=== PATIENT | male | born 1960 | race Hispanic/Latino ===

== ENCOUNTER → 2017-11-30 | Outpatient (CLI) | payer BC | END | disposition home or self-care (01) | LOC: RAH 13:44 | PROVIDERS: ATTEND Internal Medicine | DX: R51 Headache (principal); M54.2 Cervicalgia | CPT/HCPCS: 70450; 70490 ==

== ENCOUNTER 2018-03-07 05:53 | Observation (INO) | payer BC ==
[2018-03-05 08:45] VITALS: BP 145/74
[2018-03-05 08:52] LABS: BASOPHILS % (AUTO) 1.4 % (0.0-5.0); EOSINOPHILS % (AUTO) 3.7 % (0.0-8.0); HEMATOCRIT 46.9 % (42-54); LYMPHOCYTES % (AUTO) 23.7 % (21.0-51.0); MEAN CORPUSCULAR HEMOGLOBIN 30.6 pg (27.0-33.0); MEAN CORPUSCULAR HGB CONC 34.4 g/dL (32.0-36.0); MONOCYTES % (AUTO) 11.2 % (3.0-13.0); PLATELET COUNT (AUTO) 149 K/uL (130-400); RED BLOOD CELL COUNT(AUTO) 5.27 MIL/uL (4.50-6.20); RED CELL DISTRIBUTION WIDTH 13.3 % (11.0-15.5)
[2018-03-05 08:54] LABS: APPEARANCE,URINE Clear (CLEAR); BILIRUBIN,URINE Negative (NEGATIVE); COLOR,URINE Yellow (YELLOW); GLUCOSE, URINE (UA) Negative (NEGATIVE); KETONES,URINE Negative (NEGATIVE); LEUKOCYTE ESTERASE ,URINE Negative (NEGATIVE); NITRATE,URINE Negative (NEGATIVE); OCCULT BLOOD,URINE Negative (NEGATIVE); PROTEIN,URINE Negative (NEGATIVE)
[2018-03-05 09:00] LABS: CREATININE 1.2 mg/dL (0.5-1.5)
[2018-03-05 09:13] LABS: INR 1.1 (0.85-1.15); PARTIAL THROMBOPLASTIN TIME 33.9 SEC (26.3-35.5); PROTHROMBIN TIME 11.5 SEC (9.6-11.6)
[~2018-03-07] VITALS: Ht 172.7 cm; Wt 96.1 kg
[2018-03-07] VITALS (11 sets, daily range): BP systolic 133–155; BP diastolic 76–93
[~2018-03-07 05:53] MED LIST: ASPI-555 PO; ATOR20TA65 PO; ISOS30TA6 PO; LOSA50TA25 PO; METO-391 PO; NITR0.4T50 SL; SODIUM CHLORIDE 0.9% 1000ML 1,000 ML IV SCH
[2018-03-07] MEDS ORDERED: LIDOCAINE HCL-MPF 2% 5ML VIAL ONE (09:35)
[2018-03-07] MEDS ORDERED: IOHEXOL 350 MG/ML 100ML INFUS..BTL IV ONE ×2 (09:36→09:57)
[2018-03-07] MEDS ORDERED: NITROGLYCERIN 5 MG/ML 10 ML VIAL IV ONE (09:36)
[2018-03-07] MEDS ORDERED: IOHEXOL-350 50ML VIAL IV ONE (09:36)
[2018-03-07] MEDS ORDERED: IOHEXOL-350 75 ML VIAL IV ONE (09:36)
[2018-03-07] MEDS ORDERED: MIDAZOLAM HCL 1 MG/ML 2ML VIAL ONE (09:54)
[2018-03-07] MEDS ORDERED: BIVALIRUDIN 250 MG/VIAL IV ONE (10:23)
[2018-03-07] MEDS ORDERED: ADENOSINE 90MG/30ML VIAL IV ONE (10:29)
[2018-03-07] MEDS ORDERED: PRASUGREL HCL 10 MG TABLET ONE (10:39)
[2018-03-07] MEDS ORDERED: ASPIRIN 325MG EC TAB 325 MG TABLET.DR PO ONE (10:40)
[2018-03-07] MEDS ORDERED: ONDANSETRON HCL 4 MG/2 ML VIAL IVP PRN (12:15)
[2018-03-07] MEDS ORDERED: ACETAMINOPHEN-CODEINE 300/30MG TAB PO PRN ×2 (12:15)
[2018-03-07] MEDS ORDERED: NITROGLYCERIN 0.4 MG SL TAB SL SCH (12:15)
[2018-03-07] MEDS ORDERED: PRASUGREL HCL 10 MG TABLET PO SCH (12:15)
[2018-03-07] MEDS: SODIUM CHLORIDE 0.9% 1000ML 1,000 ML IV SCH ×2 (13:29→23:51)
[2018-03-07] MEDS ORDERED: ATORVASTATIN CALCIUM 20 MG TABLET PO SCH (21:00)
[2018-03-07] MEDS: METOPROLOL TARTRATE 25 MG TAB PO SCH (21:45)
[2018-03-08 04:01] LABS: HEMATOCRIT 47.8 % (42-54); MEAN CORPUSCULAR HEMOGLOBIN 29.5 pg (27.0-33.0); MEAN CORPUSCULAR HGB CONC 33.2 g/dL (32.0-36.0); MEAN CORPUSCULAR VOLUME 88.9 fL (79-99); PLATELET COUNT (AUTO) 130 K/uL (130-400); RED BLOOD CELL COUNT(AUTO) 5.37 MIL/uL (4.50-6.20); RED CELL DISTRIBUTION WIDTH 13.8 % (11.0-15.5)
[2018-03-08 04:18] LABS: CREATININE 1.2 mg/dL (0.5-1.5)
[2018-03-08 04:46] VITALS: BP 140/86
[2018-03-08 07:56] VITALS: BP 145/87
[2018-03-08] MEDS: METOPROLOL TARTRATE 25 MG TAB PO SCH (08:46)
[2018-03-08] MEDS ORDERED: PRAS10TA9 PO (08:57)
[2018-03-08] MEDS ORDERED: PRASUGREL HCL 10 MG TABLET PO SCH (09:00)
[2018-03-08] MEDS ORDERED: ASPIRIN 81MG TAB.CHEW PO SCH (09:00)
[2018-03-08] MEDS ORDERED: LOSARTAN 50 MG TABLET PO SCH (09:00)
[2018-03-08] MEDS ORDERED: ISOSORBIDE MONO 30MG TAB SR PO SCH (09:00)
== END 2018-03-08 10:00 | disposition home or self-care (01) ==
LOC: DAH 05:53 → 2AH 05:54
PROVIDERS: ADMIT Internal Medicine Cardiovascular Disease; ATTEND Internal Medicine Cardiovascular Disease
DX: I25.119 Atherosclerotic heart disease of native coronary artery with unspecified angina pectoris (principal); I25.799 Atherosclerosis of other coronary artery bypass graft(s) with unspecified angina pectoris; I25.5 Ischemic cardiomyopathy; E78.5 Hyperlipidemia, unspecified; I10 Essential (primary) hypertension; I25.2 Old myocardial infarction; Z79.899 Other long term (current) drug therapy; Z79.01 Long term (current) use of anticoagulants
CPT/HCPCS: 33521; 33533; 36415 ×2; 71045; 80048 ×2; 80061; 81003; 85025; 85027; 85610; 85730; 93005 ×3; 93571; 93572; A4606; C1725; C1760; C1769; C1874 ×3; C1887 ×2; C1894 ×2; C9600 ×2; G0378 ×28; J0153; J0583; J1644 ×2; J2250; J3490 ×2; J7030 ×3; Q9965 ×2; Q9967 ×4; 99156; 99157; C9601

== ENCOUNTER 2020-03-31 08:05 | Day surgery (SDC) | payer BC ==
[2020-03-27 11:50] VITALS: BP 140/69
[2020-03-27 15:09] LABS: BASOPHILS % (AUTO) 0.9 % (0.0-5.0); EOSINOPHILS % (AUTO) 4.4 % (0.0-8.0); HEMATOCRIT 42.1 % (42-54); MEAN CORPUSCULAR VOLUME 91.3 fL (79-99); MONOCYTES % (AUTO) 11.7 % (3.0-13.0); NEUTROPHILS % (AUTO) 58.3 % (40.0-77.0); PLATELET COUNT (AUTO) 146 K/uL (130-400); RED BLOOD CELL COUNT(AUTO) 4.61 MIL/uL (4.50-6.20); RED CELL DISTRIBUTION WIDTH 12.7 % (11.0-15.5); WHITE BLOOD COUNT (AUTO) 6.8 K/uL (4.8-10.8)
[2020-03-27 15:10] LABS: APPEARANCE,URINE Clear (CLEAR); BILIRUBIN,URINE Negative (NEGATIVE); COLOR,URINE Yellow (YELLOW); GLUCOSE, URINE (UA) Negative (NEGATIVE); KETONES,URINE Negative (NEGATIVE); LEUKOCYTE ESTERASE ,URINE Negative (NEGATIVE); NITRATE,URINE Negative (NEGATIVE); OCCULT BLOOD,URINE Negative (NEGATIVE); PROTEIN,URINE Negative (NEGATIVE)
[2020-03-27 15:17] LABS: CREATININE 1.5 mg/dL (0.5-1.5)
[2020-03-27 15:18] LABS: INR 1.06 (0.85-1.15); PARTIAL THROMBOPLASTIN TIME 29.8 SEC (26.3-35.5); PROTHROMBIN TIME 11.4 SEC (9.6-11.6)
[2020-03-31] VITALS (9 sets, daily range): BP systolic 14–140; BP diastolic 63–78
[~2020-03-31] VITALS: Ht 160 cm; Wt 92.9 kg
[~2020-03-31 08:05] MED LIST changes: -ASPI-555 PO; +ASPI-556 PO; -ATOR20TA65 PO; +ATOR40TA71 PO; +CLOP75TA14 PO; -ISOS30TA6 PO; +LOSA100T58 PO; -LOSA50TA25 PO; +RANO10005 PO; -SODIUM CHLORIDE 0.9% 1000ML 1,000 ML IV SCH
[2020-03-31] MEDS ORDERED: SODIUM CHLORIDE 0.9% 1000ML 1,000 ML IV ONE (08:11)
[2020-03-31] MEDS ORDERED: SODIUM CHLORIDE 0.9% 500ML 500 ML IV SCH (08:15)
[2020-03-31] MEDS ORDERED: BIVALIRUDIN 250 MG/VIAL IV ONE (09:42)
[2020-03-31] MEDS ORDERED: IOHEXOL-350 75 ML VIAL IV ONE (09:42)
[2020-03-31] MEDS ORDERED: NITROGLYCERIN 2 MG/VIAL VIAL IV ONE (09:42)
[2020-03-31] MEDS ORDERED: MIDAZOLAM HCL 1 MG/ML 2ML VIAL ONE (09:43)
[2020-03-31] MEDS ORDERED: LIDOCAINE HCL 2% 20ML ONE (09:43)
[2020-03-31] MEDS ORDERED: ASPIRIN 325MG EC TAB 325 MG TABLET.DR PO ONE (12:06)
[2020-03-31] MEDS ORDERED: PRASUGREL HCL 10 MG TABLET ONE (12:06)
[2020-03-31] MEDS ORDERED: LABETALOL HCL 5 MG/ML 20ML VIAL IV ONE (13:04)
[2020-03-31] MEDS ORDERED: NITROGLYCERIN 4.1 GM SPRAY TL ONE (13:34)
[2020-03-31] MEDS ORDERED: SODIUM CHLORIDE 0.9% 1000ML 1,000 ML IV SCH (13:45)
[2020-03-31 15:24] LABS: CHOLESTEROL 121 mg/dL (<200); HDL CHOLESTEROL 45 mg/dL (29-71); LDL DIRECT 70 mg/dL (0-99); TRIGLYCERIDES 125 mg/dL (30-200)
== END 2020-03-31 18:10 | disposition home or self-care (01) ==
LOC: DAH 08:05
PROVIDERS: ATTEND Internal Medicine Cardiovascular Disease
DX: I25.119 Atherosclerotic heart disease of native coronary artery with unspecified angina pectoris (principal); I25.719 Atherosclerosis of autologous vein coronary artery bypass graft(s) with unspecified angina pectoris; I25.82 Chronic total occlusion of coronary artery; I25.2 Old myocardial infarction; E78.5 Hyperlipidemia, unspecified; I45.10 Unspecified right bundle-branch block; I25.5 Ischemic cardiomyopathy; Z79.01 Long term (current) use of anticoagulants; Z79.82 Long term (current) use of aspirin; Z79.899 Other long term (current) drug therapy; Z98.890 Other specified postprocedural states; Z95.1 Presence of aortocoronary bypass graft; Z95.5 Presence of coronary angioplasty implant and graft
CPT/HCPCS: 36415 ×2; 71045; 80048; 80061; 81003; 85025; 85610; 85730; 92920; 93005; 93459; A4215; A4216; A4221; A4222; A4223 ×3; A4606; A4663; C1725; C1760; C1769; C1874 ×2; C1887 ×2; C1894 ×2; C9600; C9604; J0583; J1644 ×2; J2250; J3490 ×3; J7030 ×2; Q9967; 96360; 96361; 99156; 99157

== ENCOUNTER 2020-09-22 06:53 | Day surgery (SDC) | payer BC ==
[2020-09-22] VITALS (7 sets, daily range): BP systolic 101–138; BP diastolic 53–86
[~2020-09-22] VITALS: Ht 160 cm; Wt 90.7 kg
[~2020-09-22 06:53] MED LIST changes: +0.9%NACL 1000ML 1,000 ML IV ONE; -CLOP75TA14 PO
[2020-09-22] MEDS ORDERED: PRAS10TA9 PO (08:05)
[2020-09-22] MEDS ORDERED: LIDOCAINE HCL 1% 20 ML VIAL ONE (09:06)
[2020-09-22] MEDS ORDERED: PROPOFOL 10 MG/ML 20ML VIAL IV ONE (09:06)
[2020-09-23] MEDS ORDERED: PROPOFOL 10 MG/ML 20ML VIAL IV ONE (07:42)
== END 2020-09-22 10:05 | disposition home or self-care (01) ==
LOC: ENDO 06:53 → DAH 06:53 → ENDO 10:05
PROVIDERS: ATTEND Internal Medicine
DX: R19.5 Other fecal abnormalities (principal); I25.10 Atherosclerotic heart disease of native coronary artery without angina pectoris; I10 Essential (primary) hypertension; I25.2 Old myocardial infarction; Z95.1 Presence of aortocoronary bypass graft; E78.5 Hyperlipidemia, unspecified; Z79.82 Long term (current) use of aspirin; Z79.899 Other long term (current) drug therapy
CPT/HCPCS: 45378; 87426; 93005; A4215; A4221; A4222; A4223; A4606; A4620; J2704; J7030

== ENCOUNTER 2020-09-23 05:57 | Day surgery (SDC) | payer BC ==
[~2020-09-23] VITALS: Ht 160 cm; Wt 90.7 kg
[2020-09-23] VITALS (8 sets, daily range): BP systolic 117–136; BP diastolic 68–87
[~2020-09-23 05:57] MED LIST changes: -0.9%NACL 1000ML 1,000 ML IV ONE; +PRAS10TA9 PO
[2020-09-23] MEDS ORDERED: SODIUM CHLORIDE 0.9% 1000ML 1,000 ML IV ONE (07:12)
== END 2020-09-23 08:55 | disposition home or self-care (01) ==
LOC: ENDO 05:57 → DAH 05:57 → ENDO 08:55
PROVIDERS: ATTEND Internal Medicine
DX: K92.1 Melena (principal); K64.0 First degree hemorrhoids; K64.4 Residual hemorrhoidal skin tags; I10 Essential (primary) hypertension; I25.2 Old myocardial infarction; I25.10 Atherosclerotic heart disease of native coronary artery without angina pectoris; E78.5 Hyperlipidemia, unspecified; Z79.82 Long term (current) use of aspirin; Z79.899 Other long term (current) drug therapy; Z98.890 Other specified postprocedural states; Z95.5 Presence of coronary angioplasty implant and graft
CPT/HCPCS: 45378; A4215 ×2; A4221; A4222; A4223; A4606; A4620; A4657; A4663; J7030

== ENCOUNTER → 2022-12-02 | Outpatient (CLI) | payer BC ==
[~2022-12-02] MED LIST changes: -LOSA100T58 PO; +LOSA100T59 PO
[2022-12-02 12:16] LABS: ALBUMIN 4.2 g/dL (3.5-5.0); CREATININE 1.2 mg/dL (0.5-1.5); POTASSIUM 4.1 mmol/L (3.5-5.1); TOTAL PROTEIN, SERUM 7.8 g/dL (6.0-8.3)
== END | disposition home or self-care (01) ==
LOC: LAB 09:57
PROVIDERS: ATTEND Internal Medicine Cardiovascular Disease
DX: I25.119 Atherosclerotic heart disease of native coronary artery with unspecified angina pectoris (principal); E78.5 Hyperlipidemia, unspecified
CPT/HCPCS: 36415; 80053; 80061

== ENCOUNTER 2023-09-15 08:11 | Day surgery (SDC) | payer BC ==
[2023-09-13 13:04] LABS: BASOPHILS # (AUTO) 0.07 K/uL (0.00-0.20); BASOPHILS % (AUTO) 0.9 % (0.0-5.0); EOSINOPHILS # (AUTO) 0.35 K/uL (0.00-0.70); EOSINOPHILS % (AUTO) 4.7 % (0.0-8.0); HEMATOCRIT 44.8 % (42-54); IMMATURE GRANULOCYTE ABSOLUTE 0.06 K/uL (0-1); LYMPHOCYTES % (AUTO) 26.9 % (21.0-51.0); MEAN CORPUSCULAR HEMOGLOBIN 31.5 pg (27.0-33.0); MEAN CORPUSCULAR HGB CONC 34.4 g/dL (32.0-36.0); MEAN CORPUSCULAR VOLUME 91.6 fL (79-99); MONOCYTES # (AUTO) 1.1 K/uL (0.1-1.0); MONOCYTES % (AUTO) 14.2 % (3.0-13.0); NEUTROPHILS # (AUTO) 3.9 K/uL (1.8-7.7); NEUTROPHILS % (AUTO) 52.5 % (40.0-77.0); PLATELET COUNT (AUTO) 150 K/uL (130-400); RED BLOOD CELL COUNT(AUTO) 4.89 MIL/uL (4.50-6.20); RED CELL DISTRIBUTION WIDTH 13.2 % (11.0-15.5); WHITE BLOOD COUNT (AUTO) 7.4 K/uL (4.8-10.8)
[2023-09-13 13:12] LABS: APPEARANCE,URINE CLEAR (CLEAR); BILIRUBIN,URINE NEGATIVE (NEGATIVE); COLOR,URINE YELLOW (YELLOW); GLUCOSE, URINE (UA) NEGATIVE (NEGATIVE); KETONES,URINE NEGATIVE (NEGATIVE); LEUKOCYTE ESTERASE ,URINE NEGATIVE Leu/uL (NEGATIVE); NITRATE,URINE NEGATIVE (NEGATIVE); OCCULT BLOOD,URINE NEGATIVE (NEGATIVE); PROTEIN,URINE NEGATIVE (NEGATIVE); UROBILINOGEN,URINE 0.2 mg/dL (0.2-1.0)
[2023-09-13 13:13] LABS: CREATININE 1.3 mg/dL (0.5-1.3); POTASSIUM 4.9 mmol/L (3.5-5.1)
[2023-09-13 13:13] LABS: ADD UA MICROSCOPIC NO
[2023-09-13 13:16] LABS: INR 1.03 (0.85-1.15); PROTHROMBIN TIME 12.1 SEC (9.6-11.6)
[2023-09-13 13:35] LABS: B-TYPE NATRIURETIC PEPTIDE 212 pg/mL (0-100)
[2023-09-13 14:18] VITALS: BP 138/74; PULSE 55; RESP 18
[2023-09-15] VITALS (10 sets, daily range): BP systolic 97–125; BP diastolic 55–77; PULSE 48–53; RESP 14–16
[~2023-09-15] VITALS: Ht 170.2 cm; Wt 97.6 kg
[~2023-09-15 08:11] MED LIST changes: +CLOP75TA32 PO; +EZET10TA48 PO; +ISOS120T14 PO; -LOSA100T59 PO; -METO-391 PO; +METO-409 PO; -PRAS10TA9 PO; +SACU1TAB7 PO
[2023-09-15] MEDS ORDERED: FENTANYL CITRATE PF 50 MCG/1 ML 2ML VIAL ONE (09:39)
[2023-09-15] MEDS ORDERED: LIDOCAINE HCL 400MG/20ML VIAL ONE (09:39)
[2023-09-15] MEDS ORDERED: IOHEXOL-350 50ML VIAL IV ONE (09:40)
[2023-09-15] MEDS ORDERED: IOHEXOL 350 MG/ML 100ML INFUS..BTL IV ONE (09:40)
[2023-09-15] MEDS ORDERED: NITROGLYCERIN 50MG VIAL ONE (09:40)
[2023-09-15] MEDS ORDERED: MIDAZOLAM HCL 1 MG/ML 2ML VIAL ONE (09:40)
[2023-09-15] MEDS ORDERED: HEPARIN 10,000 UNIT/10ML (1,000 UNIT/ML) VIAL ONE (09:40)
[2023-09-15] MEDS ORDERED: 0.9%NACL 1000ML 1,000 ML IV SCH (11:00)
== END 2023-09-15 16:05 | disposition home or self-care (01) ==
LOC: DAH 08:11
PROVIDERS: ATTEND Internal Medicine Cardiovascular Disease
DX: R94.39 Abnormal result of other cardiovascular function study (principal); I25.708 Atherosclerosis of coronary artery bypass graft(s), unspecified, with other forms of angina pectoris; I45.10 Unspecified right bundle-branch block; I21.9 Acute myocardial infarction, unspecified; Z95.5 Presence of coronary angioplasty implant and graft; Z95.1 Presence of aortocoronary bypass graft; Z79.82 Long term (current) use of aspirin; Z79.899 Other long term (current) drug therapy
CPT/HCPCS: 80048; 83880; 85025; 85610; 85730; 81003; 36415; 71045; 93005; 93459; C1894 ×2; C1760; J3010; J3490 ×2; J2250; J1644; Q9967 ×2; A4215; A4222; A4221; A4663; A4216; A4606; Q9965; A4223 ×3; 96360; 96361; 99156; 99157